=== PATIENT | female | born 1980 | race Two or more races ===

== ENCOUNTER 2022-10-23 12:19 | Emergency (ER) | payer BC ==
[~2022-10-23] VITALS: Ht 149.9 cm; Wt 66.2 kg
[2022-10-23] MEDS ORDERED: CHLORTHALIDONE25 MG PO (12:59)
== END 2022-10-23 17:01 | disposition home or self-care (01) ==
LOC: ER 12:19
DX: J06.9 Acute upper respiratory infection, unspecified (principal)